=== PATIENT | female | born 1970 | race Hispanic/Latino ===

== ENCOUNTER 2019-06-16 19:11 | Emergency (ER) | payer SELFPAY ==
[2019-06-16] MEDS ORDERED: THIAMINE HCL 100 MG/ML 2ML VIAL ONE (19:31)
[2019-06-16] MEDS ORDERED: SODIUM CHLORIDE 0.9% 100 ML IV ONE (19:32)
[2019-06-16] MEDS ORDERED: SODIUM CHLORIDE 0.9% 50 ML IV ONE (19:41)
[2019-06-16] MEDS ORDERED: PANTOPRAZOLE 40 MG/VIAL ONE (19:53)
[2019-06-16 20:04] LABS: BASOPHILS % (AUTO) 0.8 % (0.0-5.0); EOSINOPHILS % (AUTO) 1.1 % (0.0-8.0); HEMATOCRIT 40.8 % (36-48); LYMPHOCYTES % (AUTO) 16.2 % (21.0-51.0); MEAN CORPUSCULAR HEMOGLOBIN 34.9 pg (27.0-33.0); MEAN CORPUSCULAR VOLUME 102.6 fL (79-99); MONOCYTES % (AUTO) 15.9 % (3.0-13.0); PLATELET COUNT (AUTO) 206 K/uL (130-400); RED BLOOD CELL COUNT(AUTO) 3.98 MIL/uL (4.00-5.50); RED CELL DISTRIBUTION WIDTH 13.6 % (11.0-15.5); WHITE BLOOD COUNT (AUTO) 8.5 K/uL (4.8-10.8)
[2019-06-16 20:08] LABS: APPEARANCE,URINE Clear (CLEAR); BILIRUBIN,URINE Negative (NEGATIVE); COLOR,URINE Yellow (YELLOW); GLUCOSE, URINE (UA) Negative (NEGATIVE); KETONES,URINE 40 mg/dL (NEGATIVE); LEUKOCYTE ESTERASE ,URINE Negative (NEGATIVE); NITRATE,URINE Negative (NEGATIVE); OCCULT BLOOD,URINE Negative (NEGATIVE); PH,URINE 5.5 (5.0-8.0); PROTEIN,URINE Negative (NEGATIVE)
[2019-06-16 20:14] LABS: INR 0.95 (0.85-1.15); PARTIAL THROMBOPLASTIN TIME 26.2 SEC (26.3-35.5)
[2019-06-16 20:15] LABS: AMPHET/METH SCREEN,URINE NEGATIVE (NEGATIVE); BARBITURATE SCREEN, URINE NEGATIVE (NEGATIVE); BENZODIAZEPINES SCREEN,URINE NEGATIVE (NEGATIVE); CANNABINOID SCREEN,URINE NEGATIVE (NEGATIVE); COCAINE SCREEN,URINE NEGATIVE (NEGATIVE); OPIATE SCREEN,URINE NEGATIVE (NEGATIVE); PHENCYCLIDINE SCREEN,URINE NEGATIVE (NEGATIVE)
[2019-06-16 20:25] LABS: RBC,URINE 0-1 /HPF (0-1)
[2019-06-16 20:26] LABS: BACTERIA,URINE Rare /HPF (None Seen); MUCUS,URINE None Seen LPF (None Seen)
[2019-06-16 20:37] LABS: CARBON DIOXIDE 19 mmol/L (21-32); CHLORIDE 92 mmol/L (101-111); CREATININE 0.6 mg/dL (0.5-1.5); GLOMERULAR FILTR. RATE CALC 114 mL/min (>60); GLUCOSE,RANDOM 95 mg/dL (70-105); POTASSIUM 3.8 mmol/L (3.5-5.1); SODIUM SERUM 130 mmol/L (136-145); UREA NITROGEN, BLOOD 4 mg/dL (7-18)
[2019-06-16 20:41] LABS: ALANINE AMINOTRANSFERASE 70 U/L (12-78); ALBUMIN 4.3 g/dL (3.5-5.0); ALCOHOL, BLOOD < 3 mg/dL (0-10); AMYLASE 24 U/L (25-115); ASPARTATE AMINOTRANSFERASE 77 U/L (10-37); BILIRUBIN,TOTAL 1.1 mg/dL (0.2-1.0); CREATINE KINASE, TOTAL 107 U/L (21-232); LIPASE 171 U/L (114-286); TOTAL PROTEIN, SERUM 8.5 g/dL (6.0-8.3)
[2019-06-16 21:22] LABS: HEMATOCRIT 38.4 % (36-48)
== END 2019-06-16 21:56 | disposition home or self-care (01) ==
LOC: EDH 19:11
DX: K92.2 Gastrointestinal hemorrhage, unspecified (principal); F41.1 Generalized anxiety disorder; F10.10 Alcohol abuse, uncomplicated; R10.13 Epigastric pain; Z87.891 Personal history of nicotine dependence; Y90.9 Presence of alcohol in blood, level not specified
CPT/HCPCS: 36415; 71045; 80053; 80305; 81001; 82150; 82270; 82550; 83690; 84484; 85014; 85018; 85025; 85610; 85730; 86850; 86900; 86901; 93005; 96365; 96375; 99285; C9113; G0480; J3411

== ENCOUNTER 2021-06-05 15:46 | Emergency (ER) | payer SELFPAY ==
[~2021-06-05] VITALS: Ht 162.6 cm; Wt 54.4 kg
[2021-06-05 15:49] VITALS: BP 122/79
== END 2021-06-05 16:50 | disposition home or self-care (01) ==
LOC: EDH 15:46
DX: Z01.818 Encounter for other preprocedural examination (principal)

== ENCOUNTER 2023-06-01 20:50 | Emergency (ER) | payer OTHER ==
[~2023-06-01] VITALS: Ht 160 cm; Wt 52.2 kg
[~2023-06-01 20:50] MED LIST: FOLI0.4T6 PO; MAGN400C PO; THIA100T75 PO
[2023-06-01 20:52] VITALS: BP 119/79; PULSE 100; RESP 16
[2023-06-01] MEDS ORDERED: TETANUS/DIPHTHERIA TOXOID [ADULT] 0.5 ML VIAL IM ONE (21:30)
== END 2023-06-01 22:13 | disposition left against medical advice (07) ==
LOC: EDH 20:50
DX: S01.111A Laceration without foreign body of right eyelid and periocular area, initial encounter (principal); Z79.899 Other long term (current) drug therapy; W18.39XA Other fall on same level, initial encounter; Y93.89 Activity, other specified; Y92.89 Other specified places as the place of occurrence of the external cause; Y99.8 Other external cause status
CPT/HCPCS: 36415

== ENCOUNTER 2025-07-06 14:56 | Emergency (ER) | payer OTHER ==
[~2025-07-06] VITALS: Ht 160 cm; Wt 46.7 kg
[2025-07-06 15:26] LABS: IMMATURE GRANULOCYTE ABSOLUTE 0.04 K/uL (0-1); NUCLEATED RED BLOOD CELLS 0.0 % (0.0-0.19); PLATELET COUNT (AUTO) 262 K/uL (130-400); RED BLOOD CELL COUNT(AUTO) 3.11 MIL/uL (4.00-5.50); RED CELL DISTRIBUTION WIDTH 11.6 % (11.0-15.5); WHITE BLOOD COUNT (AUTO) 11.7 K/uL (4.8-10.8)
[2025-07-06] MEDS ORDERED: IOHEXOL 350 MG/ML 100ML INFUS..BTL IV ONE (15:33)
[2025-07-06 15:35] LABS: CREATININE 0.5 mg/dL (0.5-1.0); GLOMERULAR FILTR. RATE CALC 112.0 mL/min (>90); GLUCOSE,RANDOM 151.0 mg/dL (70-105); SODIUM SERUM 130.0 mmol/L (136-145); UREA NITROGEN, BLOOD 2.0 mg/dL (7-18)
[2025-07-06 15:56] LABS: CREATINE KINASE, TOTAL 510.0 U/L (21-232)
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
[2025-07-06] MEDS: 0.9%NACL 1000ML 1,000 ML IV ONE (16:21)
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
[2025-07-06 16:56] LABS: AMPHET/METH SCREEN,URINE NEGATIVE (NEGATIVE); BARBITURATE SCREEN, URINE NEGATIVE (NEGATIVE); CANNABINOID SCREEN,URINE NEGATIVE (NEGATIVE); COCAINE SCREEN,URINE NEGATIVE (NEGATIVE)
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
[2025-07-06] MEDS ORDERED: BACL10TA PO (17:27)
[2025-07-06] MEDS ORDERED: KETO10TA2 PO (17:27)
[2025-07-06] MEDS: MAGNESIUM OXIDE 400 MG TABLET PO ONE (17:29)
[2025-07-06 18:41] VITALS: BP 123/71; PULSE 80; RESP 17; TEMP 98.3; O2SAT 99
--- NOTE | 2025-07-06 20:04 | EKG ---
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
== END 2025-07-06 18:42 | disposition home or self-care (01) ==
LOC: EDH 14:56
DX: S93.401A Sprain of unspecified ligament of right ankle, initial encounter (principal); S00.12XA Contusion of left eyelid and periocular area, initial encounter; S00.03XA Contusion of scalp, initial encounter; E86.0 Dehydration; E83.42 Hypomagnesemia; E87.6 Hypokalemia; Z79.899 Other long term (current) drug therapy; V89.2XXA Person injured in unspecified motor-vehicle accident, traffic, initial encounter; Y93.89 Activity, other specified; Y92.488 Other paved roadways as the place of occurrence of the external cause; Y99.8 Other external cause status
CPT/HCPCS: 99285; 70450; 96374; 96361; 96375; 82550; 83735; 84484; 80048; 80305; 85025; 36415; 73610; 72125; 71260; 70486; 74177; 93005; J2270; J7030; J2405; Q9967